=== PATIENT | female | born 1995 ===

== ENCOUNTER 2020-07-19 04:29 | Emergency (ER) | payer SELFPAY ==
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
[2020-07-19 05:13] VITALS: BP 126/69
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
[2020-07-19] MEDS ORDERED: MORPHINE 4 MG/1 ML INJ IM STA (05:49)
== END 2020-07-19 06:54 | disposition home or self-care (01) ==
LOC: ED 04:29
DX: S52.501A Unspecified fracture of the lower end of right radius, initial encounter for closed fracture (principal); Z79.899 Other long term (current) drug therapy; V49.49XA Driver injured in collision with other motor vehicles in traffic accident, initial encounter; Y93.89 Activity, other specified; Y92.488 Other paved roadways as the place of occurrence of the external cause; Y99.8 Other external cause status
CPT/HCPCS: 29125; 73110; 96372; 99283; J2270